=== PATIENT | male | born 1960 | race Caucasian/White ===

== ENCOUNTER 2019-05-10 10:30 | Outpatient (RCR) | payer MEDICAID, SELFPAY | END 2019-05-10 11:25 | disposition home or self-care (01) | LOC: PT 10:30 | PROVIDERS: PCP Family Medicine; Visit Provider Physician Assistant Medical | DX: S92.001A Unspecified fracture of right calcaneus, initial encounter for closed fracture (principal); S82.53XA Displaced fracture of medial malleolus of unspecified tibia, initial encounter for closed fracture | CPT/HCPCS: 97014; 97110; 97163; G0283 ==

== ENCOUNTER 2019-08-30 16:30 | Outpatient (RCR) | payer MEDICAID, SELFPAY | END 2019-08-30 16:35 | disposition home or self-care (01) | LOC: PT 16:30 | PROVIDERS: PCP Family Medicine; Visit Provider Orthopaedic Surgery Orthopaedic Trauma | DX: M25.571 Pain in right ankle and joints of right foot (principal) | CPT/HCPCS: 97110; 97163; 97760 ==

== ENCOUNTER 2024-06-19 11:32 | Emergency (ER) | payer OTHER, MEDICAID, SELFPAY ==
[2024-06-19 11:42] VITALS: BP 128/73; PULSE 65; RESP 18; TEMP 36.6; O2SAT 100; BMI 20.7
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
[2024-06-19 11:46] VITALS: BP 119/72; PULSE 60; O2SAT 99
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
[2024-06-19 12:15] VITALS: BP 117/69; PULSE 60; O2SAT 98
[2024-06-19 13:55] VITALS: BP 121/71; PULSE 65; RESP 17; TEMP 36.6; O2SAT 98
== END 2024-06-19 13:58 | disposition home or self-care (01) ==
PROVIDERS: Emergency Provider Emergency Medicine; PCP Family Medicine
DX: S16.1XXA Strain of muscle, fascia and tendon at neck level, initial encounter (principal); S39.012A Strain of muscle, fascia and tendon of lower back, initial encounter; M25.512 Pain in left shoulder; V49.40XA Driver injured in collision with unspecified motor vehicles in traffic accident, initial encounter
CPT/HCPCS: 71046; 72100; 72125; 73030; 99284

== ENCOUNTER 2024-08-12 14:48 | Emergency (ER) | payer OTHER, MEDICAID, SELFPAY ==
--- OUTSIDE RECORDS SUMMARY | 2016-10-19 09:02 | XMS_ITS | Continuity of Care Document ---
Author Organization [facility] Address [address] [place] [address] Phone Care Team Providers Care Yarder Engineer Name Role [facility] Unavailable Unavailable Vasiliy YORK, Teresita Unavailable Unavailable Procedures Procedure Date Cntct Gas Permeable Sphericl Advance Directives Directive Yes / No Effective Date File Name No Information Encounters Encounter Description Practice Location Reason(s) For Visit Diagnoses Date Provider Providers Copied on Encounter [facility], [address] [place] [address], [id number], [place] tel:[phone] [facility] [place] No Information [facility]. [address] [place] [address], [id number], [place]. tel:[phone] Referring Provider: Teresita Sal, [address] [place] [address], [id number]. tel:[phone] lting Provider: Teresita Sal, [address] [place] [address], [id number]. tel:[phone] Family History Family Member Type Diagnosis Age At Onset No Information Payers Payer name Insurance type Covered alliance party ID Authoriza tion(s) No Information Social History Type Description Quantity Date Captured Comments Sex Male Smoking Status No Information Chief Complaint And Reason For Visit No Information Reason For Referral Reason For Referral No Information History Of Present Illness Encounter Date Complaint History Of Prese nt Illness No Information Functional Status Date Functional Assessmen t No Information Instructions Date Instruction Additional Infor mation No Information Assessments Type Assessment Date No Information Patient Care Teams Name Effective Dates (start - stop) Status Members No Information
--- OUTSIDE RECORDS SUMMARY | 2023-11-27 09:51 | XMS_ITS | Continuity of Care Document ---
Author Organization [facility] Address [address] [place] [address] Phone Care Team Providers Care Supervisory Investigative Specialist Name Role Phone Regis OD, Orlin Unavailable Unavailable Allergies, Adverse Reactions, Alerts Substance Reaction Status Criticality No Known Allergies Active No Inform ation Medications Medication Instructions Dosage Effective Dates (start - stop) Status Comments MINOCYCLINE HCL 100 MG CAPS 100 Capsule Take one (1) capsule by mouth once daily - Active acyclovir 400 mg tablet take 400 Milligram by Oral route every day - Active Pred Forte 1 % eye drops,suspension Instill 1 drop in right eye once to twice daily as needed for irritation - Active minocycline 100 mg capsule TAKE ONE CAPSULE BY MOUTH ONCE DAILY - No Longer Active Procedures Procedure Date Comprehensive Eye Exam - Est Patient May Refractive State Comprehensive Eye Exam - New Patient Feb Refractive State Comprehensive Eye Exam - Est Patient Feb Refractive State Comprehensive Eye Exam - Est Patient Nov Refractive State Comprehensive Eye Exam - Est Patient May Refractive State Self-Ltd Office Visit - Est Patient Self-Ltd Office Visit - Est Patient Self-Ltd Office Visit - Est Patient Self-Ltd Office Visit - Est Patient Low Sev Office Visit - Est Patient Ophthalmic Biometry Technical Component Not A Valid Code, In House Only 017 External Photos And Slit Lamp 7 Comprehensive Eye Exam - Est Patient Jul Comprehensive Eye Exam - Est Patient Nov Refractive State Comprehensive Eye Exam - Est Patient Nov Refractive State Advance Directives Directive Yes / No Effective Date File Name No Information Encounters Encounter Description Practice Location Reason(s) For Visit Diagnoses Date Provider Providers Copied on Encounter [facility], [address] [place] [address], [id number] , [place] tel:[phone] [place] No Information 4 Regis Ordaz. [address] [place] [address], [id number], [place]. tel:[phone] [facility], [address] [place] [address], [id number] , tel:[phone] [place] Age-related nuclear cataract, bilateralCentral corneal opacity, right eyePresbyopia 4 Regis rOdaz. [address] [place] [address], [id number], [place]. tel:[phone] Referring Provider: Orlin Sal, [address] [place] [address], [id number] . tel:[phone] [facility], [address] [place] [address], [id number] , tel:[phone] [facility] No Information 3 Regis Ordaz. [address] [place] [address], [id number], [place]. tel:[phone] [facility], [address] [place] [address], [id number] , [place] tel:[phone] [place] Age-related nuclear cataract, bilateralCentral corneal opacity, right eyePresbyopia 3 Regis Ordaz. [address] [place] [address], [id number], [place]. tel:[phone] Referring Provider: Orlin Sal, [address] [place] [address], [id number] . tel:[phone] [facility], [address] [place] [address], [id number] , tel:[phone] [place] Age-related nuclear cataract, bilateralMyopia, bilateralCentral corneal opacity, right eye 2 No Information [facility], [address] [place] [address], [id number] , tel:[phone] [facility] No Information Jan- 1 Korey Waggoner. [address] [place] [address], [id number], [place]. tel:[phone] [facility], [address] [place] [address], [id number] , tel:[phone] [facility] No Information Oct-0 1 Troy Casanova. [address] [place] [address], [id number], [place]. tel:[phone] [facility], [address] [place] [address], [id number] , tel:[phone] [facility] Age-related nuclear cataract, bilateralMyopia, bilateralCentral corneal opacity, right eye Oct-0 0 No Information [facility], [address] [place] [address], [id number] , tel:[phone] [place] Age-related nuclear cataract, bilateralMyopia, bilateralCentral corneal opacity, right eye 9 No Information Self-Ltd Office Visit - Est Patient [facility], [address] [place] [address], [id number] , tel:[phone] [place] Peripheral opacity of cornea, right eyeAge-related nuclear cataract, right eyePunctate keratitis, right eye 8 Vasiliy Lo. [address] [place] [address], [id number], . tel:[phone] Referring Provider: Teresita Sal, [address] [place] [address], [id number] . tel:[phone] Self-Ltd Office Visit - Est Patient [facility], [address] [place] [address], [id number] , [place] tel:[phone] [place] Peripheral opacity of cornea, right eye 7 Vasiliyalec Lo. [address] [place] [address], [id number], [place]. tel:[phone] Referring Provider: Teresita Sal, [address] [place] [address], [id number] . tel:[phone] Self-Ltd Office Visit - Est Patient [facility], [address] [place] [address], [id number] , [place] tel:[phone] [place] Peripheral opacity of cornea, right eyeAge-related nuclear cataract, bilateral 7 Vasiliy Lo. [address] [place] [address], [id number], [place]. tel:[phone] Self-Ltd Office Visit - Est Patient [facility], [address] [place] [address], [id number] , [place] tel:[phone] [place] Peripheral opacity of cornea, right eyeIrregular astigmatism, right eye 7 Vasiliy Lo. [address] [place] [address], [id number], [place]. tel:[phone] Referring Provider: Teresita Sal, [address] [place] [address], [id number] . tel:[phone] Low Sev Office Visit - Est Patient [facility], [address] [place] [address], [id number] , [place] tel:[phone] [place] Peripheral opacity of cornea, right eyeAge-related nuclear cataract, bilateral 7 Vasiliy Lo. [address] [place] [address], [id number], [place]. tel:[phone] [facility], [address] [place] [address], [id number] , tel: [phone] [place] No Information Jul- 7 No Information [facility], [address] [place] [address], [id number] , tel: [phone] [place] Peripheral opacity of cornea, right eye Jul- 7 No Information [facility], [address] [place] [address], [id number] , [place] tel: [phone] [place] Age-related nuclear cataract, bilateralHerpesvir al keratitisCombined forms of age-related cataract, right eyeHerpesviral keratitisCombined forms of age-related cataract, right eyeHerpesviral keratitisPeriphera l opacity of cornea, right eye Jul- 7 No Information [facility], [address] [place] [address], [id number] , tel: [phone] [facility] Age-related nuclear cataract, right eyeMyopia, bilateralCentral corneal opacity, right eyeHerpesviral keratitis Oct- 5 No Information [facility], [address] [place] [address], [id number] , [place] tel: [phone] [facility] Corneal opacity, unspecified (Scarring)Posterio r Subcapsular CataractMyopia Nov- 3 No Information [facility], [address] [place] [address], [id number] , tel: [phone] [facility] MyopiaCorneal opacity, unspecified (Scarring)Posterio r Subcapsular Cataract May- 2 No Information Family History Family Member Type Diagnosis Age At Onset Multiple Problem (finding) HBP Father Problem (finding) Heart Disease Grandmother Problem (finding) degenerative disorder o f macula Multiple Problem (finding) cataract Father Problem (finding) Arthritis Father Problem (finding) Maternal history of deysi betes mellitus Payers Payer name Insurance type Covered libertarian ID Authoriza tion(s) Devin [facility] BL [id number] [facility] CI [id number] Social History Type Description Quantity Date Captured Comments Sex Male Smoking Status No Information Chief Complaint And Reason For Visit No Information Reason For Referral Reason For Referral No Information Plan Of Treatment Date Type Action Status Future Order: Radiology Order Sl itLamp Photo (Slitlamp), Ordered on: Ordered History Of Present Illness Encounter Date Complaint History Of Prese nt Illness No Information Functional Status Date Functional Assessmen t No Information Instructions Date Instruction Additional Infor coleman - RTC in [address] Stacy for a Medical Long. 1. Age-related nucle ar cataract, bilateral (H25.13)2. 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 Presbyopia (H52.4) - 1. Cataract has mild visual significance at this time. Observe.2. Stable. Continue to monitor annually or sooner with any discussed symptoms.3. Updated glasses prescription provided. Discussed change in Rx. Related to Presbyopia - RTC in [address] Stacy for a Medical Long. 1. Age-related nucle ar cataract, bilateral (H25.13)2. 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 Presbyopia (H52.4) - 1. Cataract has mild visual significance at this time. Observe.2. Stable. Continue to monitor annually or sooner with any discussed symptoms.3. Updated glasses prescription provided. Discussed change in Rx. Related to Age-related nuclear cataract, bilateral - 1 year - LONG - Co mplete Medical exam with Mariela Related to Age-related nuclear cataract, bilateral 1. Age-related nucle ar cataract, bilateral (H25.13) OD>OS2. Myopia, bilateral (H52.13)3. 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 - 1. Observe cataract. Patient to contact us if notices any visual changes. Return for full exam in 1 year. 2. Treatment = glasses prescription provided, emphasized OD will still be weaker eye, emphasized anisometropia potential with update .3. Continue the prednisolone when right eye feels irritated. If no improvement after using for 1-2 day, patient to call for exam. Continue the acyclovir 400 mg po q day and if functioning fine without the contact lens, ok to continue with out it. Continue minocycline q day. Related to Age-related nuclear cataract, bilateral - 1 year Corneal Mei l with Dr. Sierra, complete exam Related to Age-related nuclear cataract, bilateral 1. Age-related nucle ar cataract, bilateral (H25.13) OD>OS2. Myopia, bilateral (H52.13)3. 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 Vision improved with CL but irritation from wearing it after a fe - 1. Observe cataract. Patient to contact us if notices any visual changes. Return for full exam in 1 year. 2. Treatment = glasses prescription provided, emphasized OD will still be weaker eye, emphasized anisometropia potential with update .3. Continue the prednisolone when right eye feels irritated. If no improvement after using for 1-2 day, patient to call for exam. Continue the acyclovir 400 mg po q day and if functioning fine without the contact lens, ok to continue with out it. Continue minocycline q day. Related to Age-related nuclear cataract, bilateral 1. Age-related nucle ar cataract, bilateral (H25.13) (OU) OD>OS2. Myopia, bilateral (H52.13) (OU)3. 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 Vision improved with CL but irritation from wearin - 1. Observe cataract. Patient to contact us if notices any visual changes. Return for full exam in 1 year. 2. Treatment = glasses prescription provided.3. Continue the prednisolone when right eye feels irritated. If no improvement after using for 1-2 day, patient to call for exam. Continue the acyclovir 400 mg po q dayand . If functioning fine without the contact lens, ok to continue with out it. If wanting to get back into one, set an appointment with Dr. Amanda. Related to Age-related nuclear cataract, bilateral - 1 year Corneal MEI l with NORMA, complete exam, also with CL dept Related to Age-related nuclear cataract, bilateral - RTC cataract eval/ corneal check with Dr. Sierra 07/2017 or PRN 1. Peripheral opacit y of cornea, right eye (H17.821) (OD)2. Age-related nuclear cataract, right eye (H25.11) (OD)3. 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 Continue therapeutic lens2. Discussed tears QID, consider fish oil, good water intake3. Monitor per Dr. GREEN Related to Punctate keratitis, right eye 1. Peripheral opacit y of cornea, right eye (H17.821) (OD) - 1. continue therapeutic contact lens2. If NI comfort with new lens, RTC Related to Peripheral opacity of cornea, right eye - RTC 4 month cornea l check with Dr. Amanda (15 min slot-pink OK) Related to Peripheral opacity of cornea, right eye 1. Peripheral opacit y of cornea, right eye (H17.821) (OD)2. Age-related nuclear cataract, bilateral (H25.13) (OU) - 1. Remake therapeutic lens2. RTC 2 weeks or PRN with new lens Related to Age-related nuclear cataract, bilateral 1. Peripheral opacit y of cornea, right eye (H17.821) (OD)2. 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 Dispensed therapeutic lens2. RTC 2 weeks or PRN Related to Irregular astigmatism, right eye 1. Peripheral opacit y of cornea, right eye (H17.821) (OD)2. Age-related nuclear cataract, bilateral (H25.13) (OU) - 1. Therapeutic lens fit well and improved BVA to 20/20-12. Monitor patient with new lens Related to Age-related nuclear cataract, bilateral - Schedule next avai lable for A Scan in both eyes for testing only at the [facility] office Surgical Orders: Com plex cataract - OD. The surgery should be scheduled first available appointment. Indications include, difficulty reading small print and lens examination findings. - Place IV for Retrobulbar (Long) per QUALITY REP. Special Instructions: Goal for vision set at near with IOL. Surgical Instructions: Trypan Blue dye needed. Provisc required. Concerns: Medical clearance not required. Related to Combined forms of age-related cataract, right eye 1. Combined forms of age-related cataract, right eye (H25.811) (OD)2. 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 Peripheral opacity of cornea, right eye (H17.821) (OD) - stable paracentral superior cornea - 1. Offer elective COMPLEX cataract surgery OD. Discussed in detail risks, benefits, and options - providing informed consent. Refractive goal will be identified and confirmed with patient prior to surgery. Lens options (and associated risks and benefits) available to the patient will also be discussed and presented in advance of surgery. The patient was given the opportunity to ask questions. All questions were answered. A scan if proceeds. Discussed standard lens, did not recommend toric or MF due to K scar. STANDARD NEAR GOAL CHOSEN/CONFIRMED - 2.00. TRYPAN BLUE. EMPHASIZED VISION WILL STILL BE LIMITED BY CORNEAL SCARRING OD. 2,3. Slit lamp photo today. Continue Acyclovir QD OD, Begin consistent use of FML q day OD and Minocycline QD PO Related to Combined forms of age-related cataract, right eye 1. Age-related nucle ar cataract, right eye (OD) with PSC OD2. Myopia, bilateral (OU)3. Central corneal opacity, right eye (OD)4. 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 - 1. Offer elective cataract surgery OD. Discussed in detail risks, benefits, and options - providing informed consent. Refractive goal will be identified and confirmed with patient prior to surgery. Lens options (and associated risks and benefits) available to the patient will also be discussed and presented in advance of surgery. The patient was given the opportunity to ask questions. All questions were answered. A scan if proceeds. PATIENT WILL CALL IF DESIRES TO PROCEED. EMPHASIZED LIMITATIONS RELATED TO CORNEAL SCARRING. 2. Treatment = Updated glasses prescription provided.3,4 Continue Acyclovir and FML PRN. Call if redness pain or visual changes. Related to Herpesviral keratitis 1. Corneal opacity, unspecified (Scarring) (OD) -h/o HSV, inactive at present. 2. Posterior Subcapsular Cataract (OD) - 1. Continue Acyclovir 400 mg q day, Doxyccylcine 100 mg q day. Will hold off on FML as has been without for a while and done well. 2. Offer elective cataract surgery OD. Discussed in detail risks, benefits, and options - providing informed consent. Refractive goal will be identified and confirmed with patient prior to surgery. Lens options (and associated risks and benefits) available to the patient will also be discussed and presented in advance of surgery. The patient was given the opportunity to ask questions. All questions were answered. A scan AND PENTACAM if proceeds. PATIENT WILL CALL IF DESIRES TO PROCEED. POSSIBLE LIMITED VISION RELATED TO CORNEAL SCARRING. Related to Posterior Subcapsular Cataract Oct- - 1 year cataract ev aluation with Dr. Sierra Related to Posterior Subcapsular Cataract Dx: Posterior Subcap sular Cataract - OD; stable, discussed - Follow Related to Posterior Subcapsular Cataract Dx: Corneal opacity, unspecified (Scarring) - OD; stable, 2/2 HSV, inactive - Continue Acyclovir 400 q day, Doxycycline 100 mg q day, FML drop prn/q week (discussed risks of fci steroid use). Related to Corneal opacity, unspecified (Scarring) Dx: Myopia - OU; Dis cussed patients appropriate refractive error. - Updated elective glasses prescription provided. Discussed very little change and patient to decide whether warranted. Related to Myopia Assessments Type Assessment Date No Information Patient Care Teams Name Effective Dates (start - stop) Status Members No Information
[2024-08-12 15:25] VITALS: BP 102/70; PULSE 77; RESP 16; TEMP 36.8; O2SAT 97; BMI 20.7
--- OUTSIDE RECORDS SUMMARY | 2024-08-12 15:26 | XMS_ITS | Clinical Summary ---
Author Organization [employer] [facility] Address [address] [place] [address] Phone Care Team Providers Care Aviation Engineer Name Role Phone Sukhwinder Bravo MD Primary Care Physician [phone] Conditions or Problems Problem Name Problem Code Onset Date Status Entry Date Provider Comment Standard Description Annotate Body mass index (BMI) 20.0-20.9; adult Z68.20 (ICD-10-CM ) Active Sukhwinder Bravo MD Body mass index [BMI] 20.0-20.9, adult Fatigue 45767743 (SNOMED CT) Active Sukhwinder Bravo MD Fatigue Body mass index (BMI) 20.0-20.9; adult Z68.20 (ICD-10-CM ) 08/01 Correction 08/01 Sukhwinder Bravo MD Body mass index [BMI] 20.0-20.9, adult Myalgia 15001556 (SNOMED CT) Active Sukhwinder Bravo MD Muscle pain Body mass index (BMI) 20.0-20.9; adult Z68.20 (ICD-10-CM ) 08/01 Removed 08/01 Sukhwinder Bravo MD Body mass index [BMI] 20.0-20.9, adult Body mass index (BMI) 20.0-20.9; adult Z68.20 (ICD-10-CM ) 05/13 Correction 05/13 Sukhwinder Bravo MD Body mass index [BMI] 20.0-20.9, adult Bronchitis, acute 43222313 (SNOMED CT) 08/01 Inactive 08/01 Sukhwinder Bravo MD Acute bronchitis Wheezing 98248165 (SNOMED CT) 08/01 Active 08/01 Sukhwinder Bravo MD Wheezing Body mass index (BMI) 20.0-20.9; adult Z68.20 (ICD-10-CM ) 05/13 Removed 05/13 Sukhwinder Bravo MD Body mass index [BMI] 20.0-20.9, adult Sinusitis, acute maxillary 36645018 (SNOMED CT) 05/13 Inactive 05/13 Sukhwinder Bravo MD Acute maxillary sinusitis Back pain with radiculopath y 817103094 (SNOMED CT) 10/12 Active 10/12 Sukhwinder Bravo MD Backache Low back pain, acute 908359998 (SNOMED CT) 10/04 Active 10/04 Sukhwinder Bravo MD Acute low back pain Sciatica, acute 807985970 (SNOMED CT) 10/04 Active 10/04 Sukhwinder Bravo MD Acute sciatica COPD 19042353 (SNOMED CT) 07/22 Active 07/22 Sukhwinder Bravo MD Chronic obstructive pulmonary disease Asthma 412418738 (SNOMED CT) Active 03/26 Sukhwinder Bravo MD Asthma Osteoarthrit is 509868364 (SNOMED CT) Active 03/26 Sukhwinder Bravo MD Osteoarthritis Crohn's Disease 21555974 (SNOMED CT) Active 03/26 Sukhwinder Bravo MD Crohn's disease Medications Medication Instructions Start Date Stop Date Generic Name NDC Provider VENTOLIN HFA 108 (90 Base) MCG/ACT AERS TAKE 2 INHALATIONS 4 TIMES A DAY NEEDED FOR WHEEZING ALBUTEROL SULFATE 78082765083 Sukhwinder Bravo MD AZITHROMYCIN 250 MG TABS TAKE 2 TABLETS BY MOUTH DAY 1 THEN 1 TABLET EVERYDAY DAY 2 TO 5 AZITHROMYCIN 48137214919 Sukhwinder Bravo MD PREDNISONE 10 MG TABS 6 BY MOUTH TODAY, 5 BY MOUTH DAY #2, 4 BY MOUTH DAY #3, 3 BY MOUTH DAY #4, 2 BY MOUTH DAY #5 AND 1 BY MOUTH DAY #6 PREDNISONE 98845138607 Sukhwinder Bravo MD AMOXICILLIN 875 MG TABS TAKE 1 TABLET BY MOUTH 2 TIMES A DAY AMOXICILLIN 99175333521 Sukhwinder Bravo MD GABAPENTIN 300 MG CAPS TAKE 1 CAPSULE BY MOUTH ONCE A DAY GABAPENTIN 57689402206 Sukhwinder Bravo MD TYLENOL WITH CODEINE #3 TABLET TAKE 1 TO 2 TABLETS BY MOUTH EVERY 6 HOURS NEEDED ACETAMINOPHEN-C ODEINE TABS 93945290530 Sukhwinder Bravo MD PREDNISONE 10 MG TABS 6 BY MOUTH TODAY, 5 BY MOUTH DAY #2, 4 BY MOUTH DAY #3, 3 BY MOUTH DAY #4, 2 BY MOUTH DAY #5 AND 1 BY MOUTH DAY #6 PREDNISONE 95230825558 Sukhwinder Bravo MD VENTOLIN HFA 108 (90 Base) MCG/ACT AERS 2 puffs every 6 hours as needed ALBUTEROL SULFATE 69968884667 Sukhwinder Brvao MD [facility] OMEPRAZOLE 20 MG TBEC 1 by mouth daily OMEPRAZOLE 84311503625 Sukhwinder Bravo MD TYLENOL WITH CODEINE #3 TABLET TAKE 1 TO 2 TABLETS BY MOUTH EVERY 6 HOURS NEEDED ACETAMINOPHEN-C ODEINE TABS 85099627208 Sukhwinder Bravo MD Medications Administered No information available. Allergies, Adverse Reactions, Alerts Allergy Name Reaction Description Start Date Severity Statu s Provider BENEDRYL unknown Critical Active Sukhwinder bowen MD Results Date Name Value Unit Range Flag Description Lab Report: Hemogram, TSH Re flex, CK, CMP, Free T4 T4, FREE 1.11 ng/dL 0.80-2.00 Thyroxine (T4) free [Mass/volume] in Serum or Plasma GFR >60 mL/min Glomerular fi ltration rate/1.73 sq M.predicted among non-blacks [Volume Rate/Area] in Serum, Plasma or Blood by Creatinine-based formula (MDRD) GFRAA >60 mL/min GFR Afr Am ALK PHOS 83 U/L 40-129 Alkaline stephie sphatase [Enzymatic activity/volume] in Blood SGPT (ALT) 15 U/L <=41 Alanine aminotransferase [Enzymatic activity/volume] in Serum or Plasma SGOT (AST) 14 U/L <=40 Aspartate aminotransferase [Enzymatic activity/volume] in Serum or Plasma BILI TOTAL 0.3 mg/dL 0.1-1.4 Bilirubin. total [Mass/volume] in Serum or Plasma PROTEIN, TOT 6.7 g/dL 6.4-8.3 Protein [Mass/volume] in Serum or Plasma ALBUMIN EOP 4.5 g/dL 3.5-5.2 Albumin CREATINE SER 1.01 mg/dL 0.67-1.30 Creati nine BUN 4 mg/dL 6-20 L Urea nitrogen [Mass/volume] in Serum or Plasma BG RANDOM 76 mg/dL 74-100 Glucose [Ma ss/volume] in Blood CALCIUM 9.3 mg/dL 8.6-10.2 Calcium [Mol es/volume] in Serum or Plasma CO2 PLSM/SER 25 MMOL/L 22-29 Total CO 2 CHLORIDE BLD 102 mmol/L 98-107 Chloride POTASSIUM 3.7 mmol/L 3.5-5.0 Potassium [Moles/volume] in Serum or Plasma SODIUM 140 mmol/L 136-145 Sodium [Moles /volume] in Serum or Plasma CPK 84 U/L 39-308 Creatine marlin se [Enzymatic activity/volume] in Serum or Plasma TSHREFLX FT4 4.300 m[iU]/L 0.270-4.20 H TSH R eflex MPV 8.8 fL 6.8-10.8 MPV PLATELETS 223 X10(3)/MCL 10*3/mm3 144-423 Platelets [#/vol ume] in Blood by Automated count RDW 13.5 % 11.5-15.0 Erythrocyte distribution width [Ratio] by Automated count OL-MCHC 33.5 g/dL 32.1-35.3 MCHC MCH 32.7 pg 27.0-34.3 MCH [Entiti c mass] by Automated count MCV 97.7 fL 82.5-99.8 MCV [Entiti c volume] by Automated count HCT 41.1 % 38.9-51.6 Hematocrit [Volume Fraction] of Blood by Automated count HGB 13.8 g/dL 13.5-17.1 Hemoglobin [Mass/volume] in Blood RBC 4.21 X10(6)/MCL 10*6/mm3 4.30-5.81 L Erythrocytes [#/ volume] in Blood by Automated count WBC COUNT 6.8 X10(3)/MCL 10*3/uL 4.0-11.0 WBC Plan of Care Type Date Detail Referral Neurosurgery Neuro[facility], [address], [address], [address], [address], [place], [address] Referral Neurosurgery Neurosurgery, [address], [address], [address], [address], [place], [address] Referral excluded fr om report: Referral Orthopedic Refer ral General Referral Orthopedic Refer ral General Referral excluded fr om report: Pending order Depo Medrol 80 m g Pending order Medication Recon ciliation Pending order MRI Spine Lumbar w-out contrast Pending order X-Ray Lumbar Spi ne Pending order Medication Recon ciliation Patient education Patient Educat ion Given Patient education Patient Educat ion Given Patient education Patient Educat ion Given Patient education Patient Educat ion Given Patient education Patient Educat ion Given Patient education Patient Educat ion Given Patient education Patient Educat ion Given Patient education Patient Educat ion Given Patient education Medications Patient education Patient Educat ion Given Patient education Patient Educat ion Given Patient education Medications Patient education Patient Educat ion Given Patient education Patient Educat ion Given Patient education Medications Patient education Patient Educat ion Given Procedures Code Procedure Name Date Entry Date IMM-ORDER Injection(s) Ordered CPT-3074F Most recent systolic blood pressure <130 mm Hg CPT-3078F Most recent diastoli c blood pressure <80 mm Hg SCT-[id number] Medication Reconciliation [facility] 1759 T1 CBC no diff [facility] 80226 T1 CMP [facility] 374 T2 CPK [facility] 83618 T1 TSH reflex to free T4 201 08/30/03 CPT-J1040 Depo Medrol 80 mg CPT-3074F Most recent systolic blood pressure <130 mm Hg CPT-3078F Most recent diastoli c blood pressure <80 mm Hg SCT-[id number] Medication Reconciliation IMM-ORDER Injection(s) Ordered SCT-[id number] Medication Reconciliation CPT-3075F Most recent systolic blood pressure 130-139 mm Hg CPT-3078F Most recent diastoli c blood pressure <80 mm Hg [facility] Ref [facility] 11/02 SCT-[id number] Medication Reconciliation SCT-[id number] Medication Reconciliation ORTHO GEN Orthopedic Referral General SCT-[id number] Medication Reconciliation mri lumbar w-o edg MRI Spine Lumbar w-out contrast 201 07/28/22 SCT-[id number] Medication Reconciliation X-Ray Lumbar Spine X-Ray Lumbar Spine 201 07/28/14 [facility]-[id number] Medication Reconciliation [facility]-[id number] Medication Reconciliation Vital Signs Date Name Value Unit Description BMI (Body Mass Index) 20.30 kg/m2 Bod y Mass Index (Ratio) Body Temperature 98.2 [degF] temperat ure E&M Body Temperature 36.78 Rosario temperat ure in centigrade E&M BP Diastolic 70 mm[Hg] blood pressu re, diastolic BP Systolic 103 mm[Hg] blood pressur e, systolic BSA (Body Surface Area) 1.70 b yulissa surface area Heart Rate 77 /min pulse rate Height 68 [in_us] height E&M Height 172.72 cm height in cent imeters E&M Weight Measured 133 [lb_av] weight E& M Weight Measured 133 [lb_av] weight E& M Weight Measured 60.45 kg weight in kilograms E&M Immunizations No information available. Advance Directives Directive Description Start Date DISCUSSED - NO DECISION MADE
--- OUTSIDE RECORDS SUMMARY | 2024-08-12 15:27 | XMS_ITS | Clinical Summary ---
Author Organization [facility] Address [address] [place] [phone] Phone Care Team Providers Care Intermediate Card Tender Name Role Phone Alan Bravo MD Primary Care Provider [phone] Social History Tobacco Use Types Packs/Day Years Used Date Smoking Tobacco: Never Assessed Sex and Gender Information Value Date Recorded Sex Assigned at Not on file Legal Sex Male 2:44 AM EDT Gender Identity Not on file Sexual Orientation Not on file Plan of Treatment Health Maintenance Due Date Last Done Comments Annual Wellness Exam 08/21/1963 Hepatitis C Screening 1978 DTaP/TDaP/Td (1 - Tdap) 08/21/1979 Cologuard 2005 Colon Cancer Screening 2005 Colonoscopy 2005 FIT 2005 Sigmoidoscopy 2005 Virtual Colonography 2005 Pneumococcal Vaccine 50+ (1 of 1 - PCV) 2010 Zoster (1 of 2) 2010 COVID-19 Vaccine ( - 2023-2 5 season) 2023 Influenza Vaccine (Season Ended) 2024 Hepatitis B Vaccine Aged Out No longe r eligible based on patient's age to complete this topic Meningococcal B Vaccine Aged Out No l onger eligible based on patient's age to complete this topic Insurance Care Teams Intermediate Card Tender Relationship Specialty Start Date End Date Alan Bravo MD PCP - General Family Medicine 10/05/15
--- OUTSIDE RECORDS SUMMARY | 2024-08-12 15:27 | XMS_ITS | Clinical Summary ---
Author Organization [facility] Address [address] [place] [address] Care Team Providers Care Medical Reception Specialist Name Role Phone Unavailable Primary Care Provider Unavailabl e Social History Tobacco Use Types Packs/Day Years Used Date Smoking Tobacco: Every Day Sex and Gender Information Value Date Recorded Sex Assigned at Not on file Legal Sex Male 7:42 PM EDT Gender Identity Not on file Sexual Orientation Not on file Last Filed Vital Signs Vital Sign Reading Time Taken Comments Blood Pressure 112/72 06/05/2019 7:54 AM EDT Pulse 80 06/05/2019 7:54 AM EDT Temperature 36.7 C (98 F) 06/05/2019 7:54 AM EDT Respiratory Rate 18 04/24/2019 8:59 AM EST Oxygen Saturation - - Inhaled Oxygen Concentration - - Weight 58.1 kg (128 lb) 06/05/2019 7:54 AM EDT Height 172.7 cm (5' 8 ) 06/05/2019 7:54 AM EDT Body Mass Index 19.46 06/05/2019 7:54 AM EDT Plan of Treatment Not on file Insurance
[2024-08-12 15:30] VITALS: BP 115/74; PULSE 72; O2SAT 96
[2024-08-12 15:58] VITALS: BP 109/72; PULSE 68; RESP 16; TEMP 36.8; O2SAT 94
--- NOTE | 2024-08-12 17:04 | HMH.EDGENADL ---
Discharge Plan Disposition Patient Disposition: Home, Self-Care Condition: Good Prescriptions Prescriptions: New albuterol sulfate 90 mcg/actuation aerosol powdr breath activated 1 inh inhalation Q4H PRN (Reason: shortness of breath or wheezing) Qty: 1 0RF prednisone 20 mg tablet 40 mg PO DAILY 5 Days Qty: 10 0RF amoxicillin-pot clavulanate 875-125 mg tablet 1 tab PO BID Qty: 20 0RF azithromycin 500 mg tablet 500 mg PO DAILY 3 Days Qty: 3 0RF Referrals Follow up/Referrals: Alan Bravo MD [Primary Care Provider, Family Practice] - See instructions Nely Conner MD [Physician, Pulmonology] - See instructions Activity Restrictions/Add. Instructions Additional Instructions/Restrictions: You were evaluated in the emergency department today. At this time, we feel that your symptoms are likely related to a flareup of COPD. 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 Follow-up very closely with primary care as well as with pulmonology. Return to the emergency department for new or worsening symptoms. Clinical Impressions Clinical Impression: Acute exacerbation of chronic obstructive pulmonary disease Stand Alone Forms Stand Alone Forms: Work/School Release Instructions Patient Instructions: DI for Chronic Obstructive Pulmonary Disease, DI for Shortness of Breath Print Language Print Language: Sinhala Discharge ED Provider: Cony Jonas General Adult HPI General Chief complaint: Shortness of Breath/Dyspnea Stated complaint: SOA-asthma Time Seen by Provider: 08/12/24 15:23 Mode of Arrival: Ambulatory Source of Information: Patient Description of Symptoms (Recalled from ER Triage Doc. by RN): Patient states he has asthma and has been feeling short of breath the last couple of days. States that he does not have an inhaler any longer to use. History of Present Illness HPI narrative: This patient is a 63-year-old male who reports a history of asthma presenting to the emergency department for evaluation with concern for cough, congestion, wheezing, and shortness of breath. He notes that he does not have an inhaler because he ran out. He notes that he has been feeling bad since Monday with these URI symptoms. He does note increased sputum production. He is a smoker. No other concerns or complaints noted at this time such as chest pain or other concerns Related Data Previous Rx's ?Medication ?Instructions ?Recorded albuterol sulfate 90 mcg/actuation 1 inh inhalation Q4H PRN shortness 08/12/24 breath activated powder inhaler of breath or wheezing #1 ea amoxicillin 875 mg-potassium 1 tab PO BID #20 tabs 08/12/24 clavulanate 125 mg tablet azithromycin 500 mg tablet 500 mg PO DAILY 3 days #3 tabs 08/12/24 prednisone 20 mg tablet 40 mg (2 x 20 mg) PO DAILY 5 days 08/12/24 #10 tabs Allergies Allergy/AdvReac Type Severity Reaction Status Date / Time From BENADRYL AdvReac Intermediate SEDATION Uncoded 02/07/17 14:02 [facility] Disclaimer: The information contained in this section may have been updated after the patient was seen, as this information can be updated by other users. Social History Smoking Status: Current every day smoker alcohol intake: never current occupational status: other Travel in the last 8 weeks?: None Have you lived/traveled outside [place] in past 30 days?: No Contact w/someone who lives/traveled outside US past 30 days?: No Exposure to someone with infectious disease in past 14 days?: No Do you have a fever (greater than 100.4 F or 38 C)?: No Have you tested positive for COVID-19?: No Exposed to someone with COVID-19 in past 14 days?: No Do you have a sore throat?: No Do you have a cough?: No Do you have any weakness?: No Do you have any diarrhea?: No Are you experiencing any unusual bleeding?: No Do you have any muscle aches/pain?: No Do you have any abdominal pain?: No Are you experiencing loss of taste or smell?: No ROS Obtained: Yes All systems reviewed & no additional complaints except as documented Physical Exam General General appearance: alert and in no apparent distress Head Head exam: atraumatic and normocephalic Eye Eye exam: Present normal appearance, PERRL and EOMI ENT ENT exam: Present normal exam, normal oropharynx, mucous membranes moist and normal external ear exam Neck Neck exam: Present normal inspection, full ROM and trachea midline; Absent tenderness Chest Chest inspection: Present normal inspection and symmetric chest wall rise; Absent tenderness Respiratory Respiratory exam: Present wheezes and other (Bibasilar wheezing and rhonchi, no significant increased work of breathing with normal respiratory rate, no accessory muscle use); Absent respiratory distress, stridor or accessory muscle use Cardiovascular Cardiovascular exam: Present regular rate and normal rhythm Abdominal Exam Abdominal exam: Present soft; Absent distention, tenderness or guarding Extremities Exam Extremities exam: Present normal inspection, full ROM and normal capillary refill; Absent tenderness or edema Back Exam Back exam: Present normal inspection and full ROM; Absent tenderness Neurological Exam Neurological exam: Present alert, oriented X3, CN II-XII intact and normal gait; Absent motor sensory deficit Psychiatric Psychiatric exam: Present normal affect and normal mood Skin Skin exam: Present warm and dry Medical Decision Making Medical Records Medical records reviewed: Yes I reviewed the patient's medical records. Screening: Per USPSTF and CDC recommendations, given the prevalence of disease in our region, it is our hospital?s policy to screen for HIV and viral Hepatitis for all patients aged 18 and over and those with ongoing risk factors. Robbie Inquiry Pt receiving controlled substance: No Vital Signs: 08/12/24 15:25 08/12/24 15:30 08/12/24 15:58 Temperature 98.3 F 98.3 F Temperature Source Oral Oral Pulse Rate 72 68 Pulse Rate [Right Radial] 77 Respiratory Rate 16 16 Blood Pressure 115/74 109/72 L Blood Pressure [Right Arm] 102/70 L Blood Pressure Mean 87 Blood Pressure Mean [Right Arm] 80 Blood Pressure Source Automatic Cuff Blood Pressure Source [Right Arm] Automatic Cuff Blood Pressure Position Sitting Blood Pressure Position [Right Arm] Sitting 02 Sat by Pulse Oximetry 97 96 Oxygen Delivery Method Room Air Room Air Lab Data Lab results reviewed: Yes I reviewed the patient's lab results. Orders (Tests/Meds): ORDERS Category Date Time Status HIV Combo Stat Lab 08/12/24 15:31 Ordered Hepatitis C Ab Qual. W/ RFX Stat Lab 08/12/24 15:31 Ordered Medical Decision Narrative: In summary, this patient is a 63-year-old male presenting to the Emergency Department for evaluation of cough, wheezing, increased sputum production, and shortness of breath. Differential diagnoses considered include but are not limited to pneumonia, CHF, viral syndrome, asthma exacerbation, COPD exacerbation. Ruling out the most morbid conditions drove assessment. It should be noted patient's history includes asthma and tobacco dependence which are not at goal therapy. This complicates all aspects of care by increasing patient's risk for morbidity. On exam, the patient is well-appearing. He is ambulatory throughout the room with normal vitals on cardiac telemetry, he has mild bibasilar rhonchi and wheezing but otherwise cardiopulmonary exam is reassuring. I considered obtaining labs and imaging, however based on history and exam, I feel that this is most consistent with COPD/asthma exacerbation in the setting of likely upper respiratory infection. Patient is agreeable to discharge home with prescriptions for prednisone, inhaler, Augmentin, and azithromycin as well as instructions for close follow-up with pulmonology and PCP. Very strict return precautions given Critical Care Critical Care Time Critical Care Time: No
== END 2024-08-12 15:58 | disposition home or self-care (01) ==
PROVIDERS: Emergency Provider Emergency Medicine; PCP Family Medicine
DX: J44.1 Chronic obstructive pulmonary disease with (acute) exacerbation (principal); F17.210 Nicotine dependence, cigarettes, uncomplicated
CPT/HCPCS: 99283

== ENCOUNTER 2024-11-28 20:37 | Emergency (ER) | payer MEDICAID, SELFPAY ==
[2024-11-28 20:43] VITALS: BP 143/80; PULSE 56; RESP 18; TEMP 36.8; O2SAT 97; BMI 20.7
--- NOTE | 2024-11-28 20:53 | XR_ITS ---
PROCEDURE INFORMATION: Exam: XR Abdomen Exam date and time: 11/28/2024 9:18 PM Age: 64 years old Clinical indication: Abdominal pain; Additional info: Eval for free air TECHNIQUE: Imaging protocol: Radiologic exam of the abdomen. Views: Frontal supine view of the abdomen. 1 View. COMPARISON: CR XR LUMBAR SPINE 2-3V 06/19/2024 11:52 AM FINDINGS: Gastrointestinal tract: Nonobstructive pattern. No obvious free air identified. Bones/joints: Unremarkable. IMPRESSION: No acute findings.
--- NOTE | 2024-11-28 21:46 | HMH.EDGENADL ---
Discharge Plan Disposition Patient Disposition: Home, Self-Care Condition: Good Prescriptions Prescriptions: No Action albuterol sulfate 90 mcg/actuation aerosol powdr breath activated 1 inh inhalation Q4H PRN (Reason: shortness of breath or wheezing) Qty: 1 0RF prednisone 20 mg tablet 40 mg PO DAILY 5 Days Qty: 10 0RF amoxicillin-pot clavulanate 875-125 mg tablet 1 tab PO BID Qty: 20 0RF azithromycin 500 mg tablet 500 mg PO DAILY 3 Days Qty: 3 0RF Referrals Follow up/Referrals: Provider,Referral, MD [Primary Care Provider, Medical] - See instructions Activity Restrictions/Add. Instructions Additional Instructions/Restrictions: Please return to the emergency department if you have any new or worsening symptoms Clinical Impressions Clinical Impression: Encounter for medical assessment Print Language Print Language: Serbian Discharge ED Provider: Salvador Barnes Adult HPI General Chief complaint: Medical Clearance Stated complaint: medical clearence Time Seen by Provider: 11/28/24 20:49 Mode of Arrival: Ambulatory Source of Information: Law Enforcement Description of Symptoms (Recalled from ER Triage Doc. by RN): PT presents with Cayla BAÑUELOS for medical clearance. Pt had c/o abdominal pain, and a piece of metal in right foot. History of Present Illness HPI narrative: This is a 64-year-old male patient, with past medical history of tobacco abuse and COPD, who is presenting to the emergency department today in police custody for medical clearance. The patient does not have any notes in our system to review significant past medical history or specialty documentation notes from the past. However, he claims to have been diagnosed with Crohn's disease at the age of 11. This evening the police were dispatched to his home to remove his children from the home due to child endangerment. The patient tried to fight the police and resist the arrest. They state that there was an instance where they had to pin his hands against his abdomen in order to put him in handcuffs. The patient states that since this maneuver was performed he has been having abdominal cramping. He tells me that he was told by his metal weather stripper at some point that any external force against his abdomen could cause a bowel perforation . He states on numerous occasions that this is something that cannot be diagnosed by x-ray or CT scan because of Crohn's disease a bowel perforation does not cause free abdominal air and then it somehow causes air that is radiographically silent. He has not had any nausea, vomiting, or diarrhea since the accident. He did not suffer any traumatic injuries of his body otherwise. Related Data Previous Rx's ?Medication ?Instructions ?Recorded albuterol sulfate 90 mcg/actuation 1 inh inhalation Q4H PRN shortness 08/12/24 breath activated powder inhaler of breath or wheezing #1 ea amoxicillin 875 mg-potassium 1 tab PO BID #20 tabs 08/12/24 clavulanate 125 mg tablet azithromycin 500 mg tablet 500 mg PO DAILY 3 days #3 tabs 08/12/24 prednisone 20 mg tablet 40 mg (2 x 20 mg) PO DAILY 5 days 08/12/24 #10 tabs Allergies Allergy/AdvReac Type Severity Reaction Status Date / Time From BENADRYL AdvReac Intermediate SEDATION Uncoded 02/07/17 14:02 [facility] Disclaimer: The information contained in this section may have been updated after the patient was seen, as this information can be updated by other users. Social History Smoking Status: Current every day smoker alcohol intake: never current occupational status: other Travel in the last 8 weeks?: None Have you lived/traveled outside US in past 30 days?: No Contact w/someone who lives/traveled outside US past 30 days?: No Exposure to someone with infectious disease in past 14 days?: No Do you have a fever (greater than 100.4 F or 38 C)?: No Have you tested positive for COVID-19?: No Exposed to someone with COVID-19 in past 14 days?: No Do you have a sore throat?: No Do you have a cough?: No Do you have any weakness?: No Do you have any diarrhea?: No Are you experiencing any unusual bleeding?: No Do you have any muscle aches/pain?: No Do you have any abdominal pain?: No Are you experiencing loss of taste or smell?: No ROS Obtained: Yes Systems reviewed as appropriate & no additional complaints except as documented Physical Exam General General appearance: other (See MDM) Respiratory Respiratory exam: Present other (See MDM) Cardiovascular Cardiovascular exam: Present other (See MDM) Neurological Exam Neurological exam: Present other (See MDM) Medical Decision Making Medical Records Medical records reviewed: Yes I reviewed the patient's medical records. Screening: Per USPSTF and CDC recommendations, given the prevalence of disease in our region, it is our hospital?s policy to screen for HIV and viral Hepatitis for all patients aged 18 and over and those with ongoing risk factors. Robbie Inquiry Pt receiving controlled substance: No Robbie was queried for this patient: No Vital Signs: 11/28/24 20:43 Temperature 98.3 F Temperature Source Temporal Artery Scan Pulse Rate [Right] 56 L Respiratory Rate 18 Blood Pressure [Right Arm] 143/80 H Blood Pressure Mean [Right Arm] 101 Blood Pressure Source [Right Arm] Automatic Cuff Blood Pressure Position [Right Arm] Sitting 02 Sat by Pulse Oximetry 97 Oxygen Delivery Method Room Air Orders (Tests/Meds): ORDERS Category Date Time Status KUB (single view) [XR KUB] Stat Exams 11/28/24 20:53 Taken Medical Decision Narrative: In summary, this is a 64-year-old male patient who is presenting to the emergency department today for evaluation of medical clearance after being arrested by the police. This gentleman was arrested for child endangerment and during his arrest he resisted the arrest and they had to pin his arms against his abdomen in order to secure him in handcuffs. The patient states that he has a documented history of Crohn's disease and his metal weather stripper reportedly told him that if he ever suffered any external force against his abdominal wall that he could perforate his bowels. He is concerned that he has a bowel perforation today and states that this would be radiographically silent on both CT and x-ray due to inability to develop free abdominal air in the setting of Crohn's disease. On initial evaluation of the patient he is sitting upright in no acute distress and is nontoxic in appearance. He is hemodynamically stable, saturating well on room air, and is neurologically intact. The patient does not have any external signs of trauma to his body. No obvious cephalic trauma. No deformities of his extremities. He is ambulatory without difficulty. Pelvis is stable. He has no abdominal tenderness to palpation. Chest wall is nontender to palpation. He is overall disheveled appearing and is intentionally condescending to myself and nursing staff. Differential diagnosis includes pneumoperitoneum, blunt abdominal injury, malingering, among others. Given that the patient has acute concern for pneumoperitoneum I decided to proceed with an upright KUB for screening purposes. I do not feel that he necessitates formal imaging with a CT scan as he is not experiencing abdominal tenderness and has no external signs of trauma. KUB was personally interpreted by me and demonstrates no evidence of free air underneath the diaphragm. He has remained hemodynamically stable throughout the duration of his stay in the emergency department without the development of tachycardia. He is asymptomatic from the standpoint of nausea, vomiting, and diarrhea. Patient has been cleared for discharge in police custody. He was discharged in stable condition Critical Care Critical Care Time Critical Care Time: No
[2024-11-28 21:59] VITALS: BP 132/74; PULSE 82; RESP 16; TEMP 36.8; O2SAT 98
== END 2024-11-28 22:01 | disposition home or self-care (01) ==
PROVIDERS: Emergency Provider Student in an Organized Health Care Education/Training Program
DX: Z00.00 Encounter for general adult medical examination without abnormal findings (principal)
CPT/HCPCS: 74018; 99282; 99283